=== PATIENT | male | born 1975 | race Two or more races ===

== ENCOUNTER 2017-02-27 15:39 | Emergency (ER) | payer MEDICAID ==
[~2017-02-27] VITALS: Ht 175.3 cm; Wt 87.1 kg
[2017-02-27 15:44] VITALS: BP 142/99
== END 2017-02-27 17:07 | disposition home or self-care (01) ==
LOC: ER 15:45
DX: S62.300A Unspecified fracture of second metacarpal bone, right hand, initial encounter for closed fracture (principal); W22.8XXA Striking against or struck by other objects, initial encounter; Y93.89 Activity, other specified; Y92.89 Other specified places as the place of occurrence of the external cause; Y99.8 Other external cause status
CPT/HCPCS: 29125; 73130

== ENCOUNTER 2020-02-07 12:49 | Emergency (ER) | payer MEDICAID ==
[~2020-02-07] VITALS: Ht 175.3 cm; Wt 79.4 kg
[2020-02-07 14:15] VITALS: BP 135/95
== END 2020-02-07 15:21 | disposition home or self-care (01) ==
LOC: ER 12:49
DX: R21 Rash and other nonspecific skin eruption (principal); T14.8XXA Other injury of unspecified body region, initial encounter; W57.XXXA Bitten or stung by nonvenomous insect and other nonvenomous arthropods, initial encounter; Y93.89 Activity, other specified; Y92.89 Other specified places as the place of occurrence of the external cause; Y99.8 Other external cause status